=== PATIENT | female | born 1950 | race Caucasian/White ===

== ENCOUNTER 2018-04-23 08:42 | Outpatient (CLI) | payer OTHER ==
[~2018-04-23 08:42] MED LIST: COZAAR25 MG; HYZAAR 100-251 UDTAB; LIPIODOL10 ML; SYNTHROID112 MCG; SYNTHROID50 MCG
== END 2018-04-23 08:51 | disposition home or self-care (01) ==
LOC: LAB 08:42
DX: E78.4 Other hyperlipidemia (principal)

== ENCOUNTER 2022-01-21 08:31 | Outpatient (CLI) | payer OTHER | END 2022-01-21 08:39 | disposition home or self-care (01) | LOC: RX STUDY 08:31 | PROVIDERS: ATTEND Internal Medicine Gastroenterology | DX: R10.13 Epigastric pain (principal) ==